=== PATIENT | female | born 1970 | race Caucasian/White ===

== ENCOUNTER 2019-05-11 11:28 | Day surgery (SDC) | payer OTHER ==
[2019-05-10 15:02] VITALS: BMI 25.2
[2019-05-11] MEDS ORDERED: MIDAZOLAM HCL 2 MG/2 ML SINGLE DOSE VIAL ONE ×2 (12:51)
[2019-05-11] MEDS ORDERED: PROPOFOL 20 ML ONE (12:51)
[2019-05-11] MEDS ORDERED: ROCURONIUM BROMIDE 50 MG/5 ML SYRINGE ONE (12:52)
[2019-05-11] MEDS ORDERED: ceFAZolin SODIUM 1 GM VIAL IVPB ONE (13:16)
[2019-05-11] MEDS ORDERED: LIDOCAINE HCL/PF 2% SDV 5ML VIAL ONE (13:25)
[2019-05-11] MEDS ORDERED: DEXAMETHASONE SOD PHOSPHATE 4 MG/1 ML VIAL ONE (13:25)
[2019-05-11] MEDS ORDERED: ceFAZolin SODIUM 1 GM VIAL ONE (13:25)
[2019-05-11] MEDS ORDERED: ePHEDrine SULFATE 50 MG/1 ML AMPULE ONE (13:53)
[2019-05-11] MEDS ORDERED: NEOSTIGMINE METHYLSULFATE 0.5 MG/ML - 10 ML MDV ONE (14:07)
[2019-05-11] MEDS ORDERED: GLYCOPYRROLATE 0.2 MG/1 ML VIAL ONE (14:08)
--- NOTE | 2019-05-11 15:05 | OP ---
Operative Note - Note: Operative Date: 05/11/19 Pre-Operative Diagnosis: Pelvic pain, possible Lt hydrosalpnyx Operation: Laproscopic lysis of adhesion, excision of Left hydrosalpynx Post-Operative Diagnosis: Same as Pre-op Surgeon: Roland Perez Sticker Machine Operator: Tom De Santiago Anesthesiologist/DIAMOND CLEAVER: Caleb Villela Anesthesia: General Estimated Blood Loss (mls): 10 Operative Report Dictated: Yes
--- NOTE | 2019-05-11 15:06 | SURG ---
Surgery Online Merchandising Manager Note Online Merchandising Manager: Tom De Santiago PA-C Date of Service: 05/11/19 Diagnosis: Pelvic pain, possible Lt hydrosalpnyx Procedure: Laproscopic lysis of adhesion, excision of Left hydrosalpynx I was present for the entirety of the operative procedure. For further detail, please refer to operative report. Visit type - Case Type Case Type: Scheduled - Emergency Emergency Visit: No - New patient This patient is new to me today: Yes Date on this admission: 05/11/19 - Critical Care Critical Care patient: No
[2019-05-11] MEDS ORDERED: PROMETHAZINE HCL 25 MG/1 ML VIAL IVPUSH PRN (15:08)
[2019-05-11] MEDS ORDERED: ONDANSETRON 4 MG/2 ML VIAL IVPUSH PRN (15:08)
[2019-05-11] MEDS ORDERED: oxyCODONE HCL 5 MG TABLET PO PRN (15:08)
[2019-05-11] MEDS ORDERED: KETOROLAC TROMETHAMINE 30 MG/1 ML VIAL IVPUSH ONE (15:09)
[2019-05-11] MEDS ORDERED: ACETAMINOPHEN 1000 MG/100 ML VIAL (NON FORMULARY) IVPB ONE (15:09)
[2019-05-11] MEDS ORDERED: LACTATED RINGERS SOLUTION 1,000 ML IV SCH (15:15)
[2019-05-11] MEDS ORDERED: ONDANSETRON 4 MG/2 ML VIAL ONE (16:44)
[2019-05-11] MEDS ORDERED: ONDANSETRON 4 MG/2 ML VIAL IVPB ONE (16:50)
[2019-05-11] MEDS ORDERED: PROMETHAZINE HCL 25 MG/1 ML VIAL ONE (17:40)
[2019-05-11] MEDS ORDERED: PROMETHAZINE HCL 25 MG/1 ML VIAL IVPB ONE (17:45)
[2019-05-11 17:56] VITALS: TEMP 97.4
[2019-05-11 19:41] VITALS: BP 116/72; PULSE 67
--- NOTE | 2019-05-11 20:00 | OP ---
DATE OF OPERATION: 05/11/2019 PREOPERATIVE DIAGNOSES: Severe dyspareunia, pelvic pain; persistent left ovarian cyst, suspecting hydrosalpinx. POSTOPERATIVE DIAGNOSES: Severe dyspareunia, pelvic pain; persistent left ovarian cyst, suspecting hydrosalpinx, with confirmed large left-sided hydrosalpinx; extensive adhesions. OPERATION: Exploratory laparoscopy, lysis of extensive adhesions, resection of left hydrosalpinx. SURGEON: Roland Perez MD TRAVEL ASSISTANT: SOM Centeno ANESTHESIOLOGIST: Mikey Villela MD ANESTHESIA: General with ET. PROCEDURE AND FINDINGS: Under general anesthesia, in dorsal lithotomy position, patient was examined. Left-sided cystic mass was felt. Uterus was small with a myoma and limited mobility. Vagina was nulliparous. Cervix was small and tight. Following routine prep and drape, bladder was emptied and equivalent of Hulka manipulator was placed in the uterus. Patient was prepped and draped for the laparoscopy. Abdomen was entered through umbilical incision and insufflated with carbon dioxide delivered via Veress needle. A 10-mm trocar was introduced and 5-mm laparoscope with 30-degree angle was placed in the abdomen. Extensive adhesions with multiple layers of omental adhesions were blocking the access to the pelvis. There were multiple adhesions, many of them stringy and vascular, between uterus, bladder, adnexa, cul-de-sac, and pelvic sidewall. Right anterior fundal myoma was noted. Right ovary was eventually visualized. Hydrosalpinx was noted to be at least 8 to 10 cm in longest diameter by 3 x 4 cm. Left ovary was essentially within normal limits. Two additional 5-mm trocars were placed on the level of umbilicus to the right and left. LigaSure device was used. The other port was used for placement of the [place] grasper and other graspers as well as lavage and suction later on. Using LigaSure, about 90% of adhesions were lysed. Access to the pelvis was freed. All adhesions around the uterus and adnexa were lysed, increasing mobility of the organs. This was crucial in view of her severe dyspareunia. Hydrosalpinx was identified and, because of its size, was difficult to identify the anatomy. Fluid was drained, and afterwards, hydrosalpinx connection to the ovary and all blood supply were coagulated and divided. Hydrosalpinx was removed completely. Decision was made to preserve the left ovary. Lavage was carried out. Hemostasis was excellent. Specimen, which was deflated hydrosalpinx, was removed via the EndoCatch device. Pelvis was reexamined. Gas was allowed to escape from the abdomen. Both lateral incisions were closed with Dermabond. Umbilical incision was closed with Nickolas-Mary device with 3-0 Vicryl and 3-0 Monocryl on the edges of the skin. Dermabond was used as a dressing. Patient was awakened and transferred to PACU, comfortable and stable. Blood loss was 10 mL. Condition remained stable. MD MAXI [id number] MTDNarendra
--- NOTE | 2019-05-14 20:20 | PATH ---
Surgical Pathology Report Patient Name: MEMY VILLEGAS [facility]. Rec. #: [id number] /Age/Gender: 1970 (Age: 49) / F Account: [id number] Location: [facility] Taken: 05/11/2019 Received: 05/12/2019 Reported: 05/14/2019 Physicians: Roland Perez MD Specimen(s) Received LEFT HYDROSALPHYNX Clinical History Left hydrosalpinx Final Diagnosis LEFT HYDROSALPINX, EXCISION: PORTION OF FALLOPIAN TUBE WITH HYDROSALPINX, MILD CHRONIC INFLAMMATION, AND FOCAL CALCIFICATION. Electronically Signed Frank Archer M.D. Gross Description Received in formalin labeled "left hydrosalpinx," is a 4.8 cm in length markedly dilated portion of fallopian tube. The outer surface is landry-cartagena with adhesions. No definitive fimbria are identified. Sectioning reveals a cystic appearing lumen. Corporate Training Manager sections are submitted in 3 cassettes. /05/13/2019 [facility]05/13/2019
== END 2019-05-11 19:55 | disposition home or self-care (01) ==
LOC: JASU-SURG 11:28
PROVIDERS: ATTEND Specialist
PROC: 0UT64ZZ Resection of Left Fallopian Tube, Percutaneous Endoscopic Approach (ICD-10-PCS; principal; 2019-05-11 12:00)
DX: N70.11 Chronic salpingitis (principal); N94.10 Unspecified dyspareunia; D25.9 Leiomyoma of uterus, unspecified; N73.6 Female pelvic peritoneal adhesions (postinfective)
CPT/HCPCS: 88302-TC; 94760; J0131

== ENCOUNTER 2019-11-10 10:16 | Day surgery (SDC) | payer OTHER ==
[2019-11-04 17:11] VITALS: BMI 26.4
[2019-11-10] MEDS ORDERED: PROPOFOL 20 ML ONE ×2 (10:25)
[2019-11-10 13:44] VITALS: TEMP 98.2
[2019-11-10 13:46] VITALS: BP 110/71; PULSE 68
--- NOTE | 2019-11-16 15:21 | PATH ---
Surgical Pathology Report Patient Name: EMMY VILLEGAS [facility]. Rec. #: [id number] /Age/Gender: 1970 (Age: 49) / F Account: [id number] Location: [facility] Taken: 11/10/2019 Received: 11/10/2019 Reported: 11/16/2019 Physicians: Miranda Walls M.D. Specimen(s) Received A: SECOND PORTION DUODENUM B: ANTRUM C: GE JUNCTION Clinical History Dyspepsia Postoperative diagnosis: Gastritis Final Diagnosis A. DUODENUM, SECOND PORTION, BIOPSY: DUODENAL MUCOSA WITHOUT SIGNIFICANT PATHOLOGIC FINDINGS. B. GASTRIC ANTRUM, BIOPSY: GASTRIC ANTRAL MUCOSA WITH MILD CHRONIC GASTRITIS. IMMUNOHISTOCHEMICAL STAIN FOR H. PYLORI IS NEGATIVE. C. GE JUNCTION, BIOPSY: GASTRIC CARDIAC TYPE MUCOSA WITH MODERATE CHRONIC GASTRITIS. NO INTESTINAL METAPLASIA, DYSPLASIA, OR SQUAMOUS MUCOSA IDENTIFIED. IMMUNOHISTOCHEMICAL STAIN FOR H. PYLORI IS NEGATIVE. Immunohistochemical stains performed at [place], [place] ([id number]) and interpreted at [facility]. Positive and negative controls (internal if applicable) show appropriate results. Electronically Signed Miranda Barragan M.D. Gross Description A. Received in formalin, labeled "biopsy second portion of duodenum" is a landry, irregular portion of soft tissue measuring 0.4 cm. in greatest dimension. The specimen is submitted in toto in one cassette. B. Received in formalin, labeled "biopsy gastric antrum" is a landry, irregular portion of soft tissue measuring 0.4 cm. in greatest dimension. The specimen is submitted in toto in one cassette. C. Received in formalin, labeled "biopsy GE junction" is a landry, irregular portion of soft tissue measuring 0.3 cm. in greatest dimension. The specimen is submitted in toto in one cassette. 11/11/2019 [place]11/11/2019
== END 2019-11-10 12:35 | disposition home or self-care (01) ==
LOC: FASU-ENDO 10:16
PROVIDERS: ATTEND Internal Medicine Gastroenterology
PROC: 0DB68ZX Excision of Stomach, Via Natural or Artificial Opening Endoscopic, Diagnostic (ICD-10-PCS; 2019-11-10)
PROC: 0DB48ZX Excision of Esophagogastric Junction, Via Natural or Artificial Opening Endoscopic, Diagnostic (ICD-10-PCS; 2019-11-10)
PROC: 0DB98ZX Excision of Duodenum, Via Natural or Artificial Opening Endoscopic, Diagnostic (ICD-10-PCS; principal; 2019-11-10 11:34)
DX: K21.9 Gastro-esophageal reflux disease without esophagitis (principal); K29.50 Unspecified chronic gastritis without bleeding
CPT/HCPCS: 84703; 88305-TC

== ENCOUNTER 2019-11-24 10:07 | Day surgery (SDC) | payer OTHER ==
[2019-11-17 16:12] VITALS: BMI 26.4
[2019-11-24] MEDS ORDERED: LIDOCAINE HCL/PF 2% SDV 5ML VIAL ONE (11:27)
[2019-11-24] MEDS ORDERED: PROPOFOL 20 ML ONE ×3 (11:28)
[2019-11-24 12:45] VITALS: BP 112/60; PULSE 55; TEMP 97.9
== END 2019-11-24 12:44 | disposition home or self-care (01) ==
LOC: FASU-ENDO 10:07
PROVIDERS: ATTEND Internal Medicine Gastroenterology
PROC: 0DJD8ZZ Inspection of Lower Intestinal Tract, Via Natural or Artificial Opening Endoscopic (ICD-10-PCS; principal; 2019-11-24 11:25)
DX: Z86.010 Personal history of colon polyps (principal); K64.0 First degree hemorrhoids